=== PATIENT | female | born 1965 | race Caucasian/White ===

== ENCOUNTER 2021-10-30 07:54 | Outpatient (CLI) | payer OTHER, SELFPAY ==
--- NOTE | 2021-10-30 13:25 | W.ANESCHARGE ---
Anesthesia Charges Start Date/Time Anesthesia Start Date: 10/30/21 Anesthesia Start Time: 09:34 Stop Date/Time Anesthesia Stop Date: 10/30/21 Anesthesia Stop Time: 09:56 Summary Emergency: No
--- NOTE | 2021-10-30 14:21 | W.ANESCHARGE ---
Anesthesia Charges Start Date/Time Anesthesia Start Date: 10/30/21 Anesthesia Start Time: 09:34 Stop Date/Time Anesthesia Stop Date: 10/30/21 Anesthesia Stop Time: 09:56 Summary Emergency: No
== END 2021-10-30 07:55 | disposition home or self-care (01) ==
LOC: OP CLINIC 07:57
PROVIDERS: Visit Provider Surgery
DX: R19.8 Other specified symptoms and signs involving the digestive system and abdomen (principal); K22.89 Other specified disease of esophagus
CPT/HCPCS: 43239; 731; 88305; J2704; J3490